=== PATIENT | female | born 1985 | race Caucasian/White ===

== ENCOUNTER 2017-04-10 19:33 | Emergency (ER) | payer OTHER ==
[~2017-04-10] VITALS: Ht 172.7 cm; Wt 112.0 kg
[~2017-04-10 19:33] MED LIST: FLUT1SPR5 EACH NARE; PNV-TAB; TETA1INJ6 IM
[2017-04-10 19:35] VITALS: BP 131/82; PULSE 84; RESP 16; TEMP 98.1; O2SAT 97
[2017-04-10] MEDS ORDERED: SODIUM CHLOR 0.9% 1000 ML INJ 1,000 ML IV SCH (20:07)
[2017-04-10] MEDS ORDERED: ONDANSETRON HCL 4 MG/2 ML VIAL IVP ONE (20:15)
[2017-04-10] MEDS ORDERED: FAMOTIDINE 20 MG/2 ML VIAL IV PUSH ONE (20:15)
[2017-04-10] MEDS ORDERED: ALUMINUM/MAGNESIUM/SIMETH 30 ML CUP PO ONE (20:15)
[2017-04-10] MEDS ORDERED: SODIUM CHLORIDE 0.9% FLUSH 10 ML FLUSH IV FLUSH PRN (20:15)
[2017-04-10] MEDS ORDERED: LIDOCAINE VISCOUS 2% SOLN 15 ML UDC PO ONE (20:15)
--- NOTE | 2017-04-10 20:50 | PD ---
HPI Chief Complaint: Abdominal Pain Time Seen by Provider: 20:03 Travel History International Travel<30 days: No Contact w/Intl Traveler<30days: No Traveled to known affect area: No History of Present Illness HPI Patient is a 31 year old female who comes in complaining of abdominal pain. She says she has had this mid-epigastric pain on and off for a while now, but since it has been getting worse. She says she feels the pain going through to her back. She says it does not seem to be related to food intake. She says she feels nauseous, but has not had any vomiting. She denies fever or chills. She is having normal bowel movements. [facility] [place] Past Medical History Diminished Hearing: No : 2 Para: 1 Miscarriage: 1 Past Surgical History Section: Yes Oral Surgery: Yes (SANDRA) Social History Alcohol Use: No Tobacco Use: No Substance Use: No Allergies-Medications (Allergen,Severity, Reaction): Coded Allergies: Codeine (Verified Allergy, Severe, Anaphylaxis, 04/10/17) Reported Meds & Prescriptions Reported Meds & Active Scripts Active No Active Prescriptions or Reported Medications Review of Systems Except as stated in HPI: all other systems reviewed are Neg General / Constitutional: No: Fever, Chills HENT: No: Headaches, Lightheadedness Cardiovascular: No: Chest Pain or Discomfort Respiratory: No: Shortness of Breath Gastrointestinal: Positive: Nausea, Abdominal Pain, No: Vomiting, Diarrhea Genitourinary: No: Dysuria Skin: No Rash, No Change in Pigmentation Neurologic: No: Weakness, Dizziness Physical Exam Narrative GENERAL: Awake and alert, in no acute distress. SKIN: Focused skin assessment warm/dry. HEAD: Atraumatic. Normocephalic. EYES: Pupils equal and round. No scleral icterus. ENT: Mucous membranes pink and moist. NECK: Trachea midline. No JVD. CARDIOVASCULAR: Regular rate and rhythm. No murmur appreciated. RESPIRATORY: No accessory muscle use. Clear to auscultation. Breath sounds equal bilaterally. GASTROINTESTINAL: Abdomen soft, nondistended. Tender to palpation of the mid epigastric area. No rebound or guarding. MUSCULOSKELETAL: No obvious deformities. No clubbing. No cyanosis. No edema. NEUROLOGICAL: Awake and alert. No obvious cranial nerve deficits. Motor grossly within normal limits. Normal speech. PSYCHIATRIC: Appropriate mood and affect; insight and judgment normal. Data Data Last Documented VS Vital Signs Date Time Temp Pulse Resp B/P Pulse Ox O2 Delivery O2 Flow Rate FiO2 04/10/17 20:52 88 18 141/62 96 Room Air 04/10/17 19:35 98.1 Orders Basic Metabolic Panel (Bmp) (04/10/17 20:07) Complete Blood Count With Diff (04/10/17 20:07) Lipase (04/10/17 20:07) Prothrombin Time / Inr (Pt) (04/10/17 20:07) Act Partial Throm Time (Ptt) (04/10/17 20:07) Urinalysis - C+S If Indicated (04/10/17 20:07) Ua Includes Microscopic (04/10/17 20:07) Ct Abd/Pel W Iv Contrast(Rout) (04/10/17 20:07) Iv Access Insert/Monitor (04/10/17 20:07) Ecg Monitoring (04/10/17 20:07) Oximetry (04/10/17 20:07) Ondansetron Inj (Zofran Inj) (04/10/17 20:15) Sodium Chlor 0.9% 1000 Ml Inj (Ns 1000 M (04/10/17 20:07) Sodium Chloride 0.9% Flush (Ns Flush) (04/10/17 20:15) Famotidine Inj (Pepcid Inj) (04/10/17 20:15) Al-Mag Hy-Si 40-40-4 Mg/Ml Liq (Mag-Al P (04/10/17 20:15) Lidocaine 2% Viscous (Xylocaine 2% Visco (04/10/17 20:15) Ed Urine Pregnancytest Poc (04/10/17 20:07) Hepatic Functional Panel (04/10/17 20:07) Iohexol 350 Inj (Omnipaque 350 Inj) (04/10/17 23:22) Labs Laboratory Tests Test 04/10/17 21:00 White Blood Count 12.0 TH/MM3 Red Blood Count 4.84 MIL/MM3 Hemoglobin 11.9 GM/DL Hematocrit 37.3 % Mean Corpuscular Volume 77.0 FL Mean Corpuscular Hemoglobin 24.6 PG Mean Corpuscular Hemoglobin 32.0 % Concent Red Cell Distribution Width 16.4 % Platelet Count 359 TH/MM3 Mean Platelet Volume 8.2 FL Neutrophils (%) (Auto) 66.4 % Lymphocytes (%) (Auto) 25.9 % Monocytes (%) (Auto) 5.9 % Eosinophils (%) (Auto) 1.5 % Basophils (%) (Auto) 0.3 % Neutrophils # (Auto) 8.0 TH/MM3 Lymphocytes # (Auto) 3.1 TH/MM3 Monocytes # (Auto) 0.7 TH/MM3 Eosinophils # (Auto) 0.2 TH/MM3 Basophils # (Auto) 0.0 TH/MM3 CBC Comment DIFF FINAL Differential Comment Prothrombin Time 11.2 SEC Prothromb Time International 1.0 RATIO Ratio Activated Partial 30.5 SEC Thromboplast Time Urine Color LIGHT-YELLOW Urine Turbidity CLEAR Urine pH 5.5 Urine Specific Dorr 1.010 Urine Protein NEG mg/dL Urine Glucose (UA) NEG mg/dL Urine Ketones NEG mg/dL Urine Occult Blood NEG Urine Nitrite NEG Urine Bilirubin NEG Urine Urobilinogen LESS THAN 2.0 MG/DL Urine Leukocyte Esterase NEG Urine RBC LESS THAN 1 /hpf Urine Bacteria RARE /hpf Microscopic Urinalysis Comment CULT NOT INDICATED Sodium Level 136 MEQ/L Potassium Level 4.3 MEQ/L Chloride Level 102 MEQ/L Carbon Dioxide Level 25.1 MEQ/L Anion Gap 9 MEQ/L Blood Urea Nitrogen 11 MG/DL Creatinine 0.68 MG/DL Estimat Glomerular Filtration 100 ML/MIN Rate Random Glucose 84 MG/DL Calcium Level 9.2 MG/DL Total Bilirubin 0.5 MG/DL Direct Bilirubin 0.1 MG/DL Indirect Bilirubin 0.4 MG/DL Aspartate Amino Transf 23 U/L (AST/SGOT) Alanine Aminotransferase 22 U/L (ALT/SGPT) Alkaline Phosphatase 140 U/L Total Protein 8.1 GM/DL Albumin 3.7 GM/DL Lipase 144 U/L MDM Medical Decision Making Medical Screen Exam Complete: Yes Emergency Medical Condition: Yes Medical Record Reviewed: Yes Differential Diagnosis Pancreatitis versus cholelithiasis versus cholecystitis versus gastritis versus GERD Narrative Course Patient is a 31-year-old female comes in complaining of abdominal pain. Exam shows tenderness to the mid epigastric area. IV established, labs sent. Labs show no acute abnormalities. Patient given IV fluids, Zofran, GI cocktail and reports feeling better. CT abdomen and pelvis shows a 3 cm gallstone with possible thickening of the gallbladder wall to 5 mm[address] I spoke with Dr. Yanez regarding the patient and the CAT scan. He feels the patient can be seen in the office tomorrow. She is to go to his office at 1 PM tomorrow for further management. Patient given information. She is offered more pain medicine, but she declines at this time as she is breast-feeding. She is advised she can take Tylenol or ibuprofen. Advised to return to the ED as needed for any worsening symptoms. Diagnosis Primary Impression: Cholelithiasis Qualified Code: K80.00 - Calculus of gallbladder with acute cholecystitis without obstruction Referrals: Cachorro aYnez MD call for appointment Patient Instructions: Cholecystitis (ED), General Instructions Additional Instructions: Follow-up with Dr. Yanez tomorrow after lunch, at [address] Cachorro Yanez: [address] [id number] [phone]. Call tomorrow morning for an appointment tomorrow after lunch at 1PM. Take Tylenol or Ibuprofen as needed for pain. Return to the ED as needed for any worsening symptoms. Scripts No Active Prescriptions or Reported Meds Disposition: DISCHARGE HOME Condition: Stable Kristina Gomez MD Apr 10, 2017 20:50
[2017-04-10 20:52] VITALS: BP 141/62; PULSE 88; RESP 18; O2SAT 96
[2017-04-10 21:50] LABS: BASOPHIL % 0.3 % (0.0-2.0); EOSINOPHIL # 0.2 TH/MM3 (0-0.4); EOSINOPHIL % 1.5 % (0.0-4.0); HEMATOCRIT 37.3 % (35.0-46.0); HEMO FLAGS DIFF FINAL; LYMPH % 25.9 % (9.0-44.0); LYMPHOCYTE # 3.1 TH/MM3 (1.0-4.8); MEAN CORPUSCULAR HEMOGLOBIN 24.6 PG (27.0-34.0); MONO % 5.9 % (0.0-8.0); NEUT % 66.4 % (16.0-70.0); PLATELET COUNT 359 TH/MM3 (150-450); RED BLOOD COUNT 4.84 MIL/MM3 (4.00-5.30); RED CELL DISTRIBUTION WIDTH 16.4 % (11.6-17.2)
[2017-04-10 21:53] LABS: BACTERIA, URINE RARE /hpf; BLOOD, URINE NEG (NEG); COMMENT (UR) CULT NOT INDICATED; CULTURE IF INDICATED CULT NOT INDICATED; GLUCOSE,URINE NEG (NEG); KETONE, URINE NEG (NEG); NITRITE,URINE NEG (NEG); PH, URINE 5.5 (5.0-8.5); URINE COLOR LIGHT-YELLOW (YELLW/STRAW)
[2017-04-10 22:05] LABS: APTT (PATIENT) 30.5 SEC (24.3-30.1); PROTHROMBIN TIME - PATIENT 11.2 SEC (9.8-11.6)
[2017-04-10 22:10] LABS: TOTAL BILIRUBIN ADULT 0.5 MG/DL (0.2-1.0)
[2017-04-10 22:13] LABS: BICARBONATE 25.1 MEQ/L (21.0-32.0); INDIRECT BILIRUBIN 0.4 MG/DL (0.0-0.8)
[2017-04-10 22:20] LABS: POTASSIUM 4.3 MEQ/L (3.5-5.1)
[2017-04-10] MEDS ORDERED: IOHEXOL 350 MG/ML 10 ML VIAL (for RAD DIAG) IV ONE (23:22)
--- NOTE | 2017-04-10 23:34 | RADRPT ---
EXAM DATE/TIME: 04/10/2017 23:11 [facility] COMPARISON: No previous studies available for comparison. INDICATIONS : Abdominal pain with nausea. IV CONTRAST: 97 cc Omnipaque 350 (iohexol) IV ORAL CONTRAST: No oral contrast ingested. RADIATION DOSE: 20.15 CTDIvol (mGy) MEDICAL HISTORY : None SURGICAL HISTORY : section. ENCOUNTER: Initial ACUITY: 1 day PAIN SCALE: 5/10 LOCATION: Bilateral abdomen TECHNIQUE: Volumetric scanning of the abdomen and pelvis was performed. Using automated exposure control and ad justment of the mA and/or kV according to patient size, radiation dose was kept as low as reasonably achievable to obtain optimal diagnostic quality images. DICOM format image data is available electro nically for review and comparison. FINDINGS: Small pericardial effusion. 3 cm gallstone. Spleen, liver, pancreas, adrenal glands, kidneys are unre markable. Appendix, small bowel, large bowel unremarkable. Urinary bladder, uterus and adnexa are unr emarkable. No adenopathy or aneurysm. Stomach unremarkable. Lung bases are clear. Osseous structures are intact., Possible mild gallbladder wall thickening up to 5 mm. CONCLUSION: 1. Cholelithiasis with possible gallbladder wall thickening. In the appropriate clinical setting chol ecystitis can have this appearance. Ultrasound may be helpful for further evaluation. 2. Small pericardial effusion. 3. Otherwise unremarkable. Gallito Pelletier MD on April 10, 2017 at 23:29 Board Certified Radiologist. This report was verified electronically.
[2017-04-11 00:28] VITALS: BP 111/76; PULSE 80; RESP 18; O2SAT 99
== END 2017-04-11 00:42 | disposition home or self-care (01) ==
LOC: NEPD 19:33
DX: K80.00 Calculus of gallbladder with acute cholecystitis without obstruction (principal)
CPT/HCPCS: 74177; 80048; 80076; 81001; 83690; 84703; 85025; 85610; 85730; 96361; 96374; 96375; 99285; J2405; J7030; Q9967